=== PATIENT | female | born 1955 | race Caucasian/White ===

== ENCOUNTER 2017-01-12 07:30 | Observation (INO) | payer BC ==
[2017-01-19 12:14] LABS: % IMMATURE GRANULYOCYTES 0.2 % (0.0-1.1); ABSOLUTE IMMATURE GRANULOCYTES 0.02 10^3/uL (0.00-0.10); ADD DIFF? NO; ADD MORPH? NO; ADD SCAN? NO; ATYPICAL LYMPHOCYTE FLAG 0 (0-99); FRAGMENT RBC FLAG 0 (0-99); HEMATOCRIT 39.4 % (38.0-47.0); HEMOGLOBIN 13.1 g/dL (12.6-16.3); LEFT SHIFT FLG 0 (0-99); LIPEMIA HEMOLYSIS FLAG 80 (0-99); MEAN CELL HEMOGLOBIN CONCENTR. 33.2 g/dL (32.4-36.7); MEAN CELL VOLUME 81.1 fL (81.5-99.8); MEAN PLATELET VOLUME 8.4 fL (8.7-11.7); PLATELET CLUMPS FLAG 10 (0-99); PLATELET COUNT 362 10^3/uL (150-400); RED BLOOD CELL COUNT 4.86 10^6/uL (4.18-5.33)
--- NOTE | 2017-01-19 14:09 | CPEKG ---
Heart Rate: 75 RR Interval: 800 P-R Interval: 136 QRSD Interval: 78 QT Interval: 364 QTC Interval: 407 P [place]: 47 QRS [place]: 13 T Wave [place]: 38 EKG Severity - NORMAL ECG - EKG Impression: SINUS RHYTHM Electronically Signed By: Sylvia Flynn 19-Jan-2017 17:04:59
[2017-01-25] MEDS ORDERED: BUPIVACAINE 0.5% 30 ML SDV ONE (10:54)
[2017-01-25] MEDS ORDERED: MIDAZOLAM 2 MG/2 ML VIAL ONE ×2 (10:56→11:10)
[2017-01-25] MEDS ORDERED: PROPOFOL 200 MG/20 ML VIAL ONE (10:58)
[2017-01-25] MEDS ORDERED: fentaNYL 100 MCG/2 ML INJ ONE ×3 (10:58→14:15)
[2017-01-25] MEDS ORDERED: PROPOFOL/EMULSION 500 MG/50 ML BOTTLE IV ONE (10:59)
[2017-01-25] MEDS ORDERED: REMIFENTANIL HCL 1 MG VIAL ONE (10:59)
[2017-01-25] MEDS ORDERED: LIDOCAINE 1% 5 ML SDV ID PRN (11:06)
[2017-01-25] MEDS ORDERED: LR 1,000 ML IV ONE (11:06)
[2017-01-25] MEDS ORDERED: cefOXitin SODIUM 1 GM in D5W 50 ML IV ONE (11:30)
[2017-01-25] MEDS ORDERED: ROCURONIUM 100 MG/10 ML VIAL ONE (12:25)
[2017-01-25] MEDS ORDERED: DEXAMETHASONE 4 MG/ML VIAL ONE (12:25)
[2017-01-25] MEDS ORDERED: ONDANSETRON 4 MG/2 ML VIAL ONE ×2 (12:25→13:32)
[2017-01-25] MEDS ORDERED: SUGAMMADEX SODIUM 200 MG/2 ML VIAL IVP ONE (13:32)
[2017-01-25] MEDS ORDERED: OXYCODONE/APAP 5/325 TAB PO PRN (14:06)
[2017-01-25] MEDS ORDERED: ONDANSETRON 4 MG/2 ML VIAL IVP PRN (14:06)
--- NOTE | 2017-01-25 14:08 | POSTOPPROG ---
Post Op Note Date of Operation: 01/25/17 Surgeon: Berny Zaldivar Service Bar Cashier: Dr. Hartman Anesthesiologist: Dr. Marinelli Anesthesia: GET(General Endotracheal) Pre-op Diagnosis: GERD Post-op Diagnosis: GERD Procedure: Robotic fundoplication Inf/Abcess present in the surg proc area at time of surgery?: No EBL: Minimal
[2017-01-25] MEDS: LR 1,000 ML IV SCH (16:51)
[2017-01-25] MEDS: SERTRALINE HCL 100 MG TAB PO SCH (17:09)
--- NOTE | 2017-01-25 21:33 | GOP ---
[f rep st] OPERATIVE REPORT DATE OF OPERATION: 01/25/2017 SURGEON: Francisco Javier Zaldivar MD DATA ANALYTICS SPECIALIST: Dr. Hartman. ANESTHESIA: General endotracheal anesthesia. ANESTHESIOLOGIST: Dr. Marinelli. PREOPERATIVE DIAGNOSIS: Gastroesophageal reflux disease. POSTOPERATIVE DIAGNOSIS: Gastroesophageal reflux disease. PROCEDURE PERFORMED: Robotic fundoplication and hiatal hernia repair. FINDINGS: The patient had a moderate hiatal hernia. Initial needle count was incorrect, although r adiographic scanning demonstrated no evidence of intracorporeal needle. ESTIMATED BLOOD LOSS: 30 cc. INDICATIONS: This is a 61-year-old female with a history of reflux. Risks and benefits of the proc edure discussed with the patient and family, their questions were answered, and they wished to proce ed. DESCRIPTION OF PROCEDURE: The patient was in the supine position initially. After the induction of adequate general endotracheal anesthesia, the patient was moved to the modified lithotomy position. The patient was then prepped and draped in the standard surgical fashion. Marcaine 0.5% was injec haja throughout the supraumbilical area for local anesthesia. An 8-mm incision was made and the abdominal wall was elevated. A Veress needle was inserted and aft er noting proper pressures, the abdomen was insufflated with carbon dioxide. An 8-mm trocar was barb elda and a camera followed. There was no apparent damage from trocar placement. Four more ports wer e placed, three 8-mm ports in the upper abdomen and one 5-mm port in the right mid abdomen. These w ere all placed under direct vision after injecting 0.5% Marcaine for local anesthesia. The robot was then docked without difficulty. Robotic instruments were then used to perform the diss ection. The Harmonic scalpel was used to take down the gastrohepatic ligament. Dissection was then carried over the esophagus exposing the right naya. The dissection proceeded laterally and the sup erior portion of the esophagus and the left naya were exposed. The vagus nerves were seen and prese rved throughout the entire case. Next, the posterior window was opened using blunt dissection and t he Harmonic scalpel. Once this window was achieved, attention was turned to the short gastrics. A significant portion of the short gastric vessels was taken down using a Harmonic scalpel. This fr eed up the fundus in its entirety. The mediastinal dissection was then performed. This was careful ly performed using blunt dissection and minimal energy component. Once the entire visible portion o f the esophagus was freed and the gastroesophageal junction returned to the abdomen, the repair of t he hiatal hernia ensued. Interrupted sutures of 3-0 silk were used to approximate the hiatus clinical services manager iorly. Enough room was seen for the esophagus and an instrument tip. The fundus was then brought p osteriorly to the esophagus and the wrap performed. Initial suture took bites of stomach, anterior esophagus, and stomach. Care was taken again to avoid the vagus nerve. Two more sutures of 3-0 angela k were used to create the wrap inferiorly. This was a loose floppy wrap. No other lesions were nadia ntified at this time. Good hemostasis was noted. The robot was then undocked. Trocars were removed under direct vision. The pneumoperitoneum was al lowed to escape. The wounds were thoroughly irrigated. The skin at all sites was closed using 4-0 Monocryl in a subcuticular suture. Wounds were sterilely dressed and the patient was returned to th e supine position and extubated. The patient was then taken to the PACU in stable condition. DRAINS: None. PROCEDURE: Da Lon robotic M[place]a fundoplication and hiatal hernia repair. COMPLICATIONS: None. ADDENDUM: A partial wrap was completed with a posterior 270-degree wrap. Initial anchoring sutures were placed with the fundus to the crura. Next, sutures were taken from the stomach to the esophag us to complete the 270-degree wrap. The initial needle count was incorrect. After extensive search ing intra-abdominally using the camera, no needle could be identified. Radiographs were then taken and examined with the radiologist. No needle was identified on these films. Copy requested to: Dr. Hartman /[id number]/MODL
[2017-01-25] MEDS: CYCLOSPORINE 0.05% 1 EACH BOX EACHEYE SCH (21:34)
[2017-01-25 23:08] VITALS: O2SAT 93
[2017-01-26] MEDS: LR 1,000 ML IV SCH (02:44)
[2017-01-26] MEDS: ACETAMINOPHEN 325 MG TAB PO PRN ×2 (08:10→15:01)
[2017-01-26 08:29] VITALS: BP 127/63; PULSE 76; RESP 14; TEMP 98.3
[2017-01-26] MEDS: CYCLOSPORINE 0.05% 1 EACH BOX EACHEYE SCH (09:13)
--- NOTE | 2017-01-26 10:49 | SOAPPROG ---
SOAP Progress Note Assessment/Plan: Assessment: Improving. Cont clears. Poss d/c. Plan: 01/26/17 10:47 Subjective: Patient feels better, nikolay po, no N/V. Objective: Vital Signs Temp Pulse Resp BP Pulse Ox 36.8 C 76 14 127/63 H 93 01/26/17 08:00 01/26/17 08:00 01/26/17 08:00 01/26/17 08:00 01/26/17 08:00 Laboratory Results 01/19/17 11:35 01/25/17 01/26/17 01/27/17 05:59 05:59 05:59 Intake Total 1700 Output Total 350 1000 Balance 1350 -1000 Alert, NAD RRR Abd soft, inc TTP Inc C/D/I ICD10 Worksheet Patient Problems: Problems Problem Status Onset GERD (gastroesophageal reflux disease) Acute - ICD10 Problem Qualifiers (1) GERD (gastroesophageal reflux disease) Qualifiers: Esophagitis presence: E
[2017-01-26 12:51] LABS: HEMATOCRIT 38.8 % (38.0-47.0); HEMOGLOBIN 12.5 g/dL (12.6-16.3)
[2017-01-26] MEDS: SERTRALINE HCL 100 MG TAB PO SCH (15:00)
== END 2017-01-26 15:12 | disposition home or self-care (01) ==
LOC: F3E 01-25 10:02
PROVIDERS: ADMIT Surgery; ATTEND Surgery
PROC: 8E0WXCZ Robotic Assisted Procedure of Trunk Region (ICD-10-PCS; principal; 2017-01-25 11:00)
PROC: 0BQR4ZZ (ICD-10-PCS; principal; 2017-01-25 11:00)
PROC: 0DV44ZZ Restriction of Esophagogastric Junction, Percutaneous Endoscopic Approach (ICD-10-PCS; principal; 2017-01-25 11:00)
PROC: 0BQS4ZZ (ICD-10-PCS; principal; 2017-01-25 11:00)
DX: K21.9 Gastro-esophageal reflux disease without esophagitis (principal); K44.9 Diaphragmatic hernia without obstruction or gangrene
CPT/HCPCS: 43280; 74000; 93005; G0378; J0697; J1100; J2250; J2405; J2704; J3010